=== PATIENT | male | born 1960 | race Caucasian/White ===

== ENCOUNTER 2019-05-01 12:50 | Emergency (ER) | payer MEDICARE ==
[~2019-05-01] VITALS: Ht 177.8 cm; Wt 89.6 kg
[2019-05-01 14:58] VITALS: BP 133/74
== END 2019-05-01 15:01 | disposition home or self-care (01) ==
LOC: ED 14:48
DX: S93.621A Sprain of tarsometatarsal ligament of right foot, initial encounter (principal); S90.112A Contusion of left great toe without damage to nail, initial encounter; J44.9 Chronic obstructive pulmonary disease, unspecified; I50.9 Heart failure, unspecified; I48.91 Unspecified atrial fibrillation; W01.0XXA Fall on same level from slipping, tripping and stumbling without subsequent striking against object, initial encounter; Y93.89 Activity, other specified; Y92.89 Other specified places as the place of occurrence of the external cause; Y99.8 Other external cause status
CPT/HCPCS: 99283